=== PATIENT | female | born 1995 | race African-American/Black ===

== ENCOUNTER 2018-07-24 19:21 | Emergency (ER) | payer OTHER ==
--- NOTE | 2018-07-24 20:21 | ER Document Report ---
ED General - General Chief Complaint: Shoulder Pain Stated Complaint: RIGHT ARM/SHOULDER CRAMPING/NECK PAIN Time Seen by Provider: 07/24/18 20:00 Primary Care Provider: MARKO VELASQUEZ DO [Primary Care Provider] - Follow up as needed Mode of Arrival: Ambulatory Information source: Patient TRAVEL OUTSIDE OF THE [place] IN LAST 30 DAYS: No - HPI Patient complains to provider of: Lower abdominal cramping, right shoulder pain Onset: Other - Past couple of days Onset/Duration: Constant Quality of pain: Cramping Severity: Moderate Pain Level: 3 Associated symptoms: denies: Chills, Fever Exacerbated by: Denies Relieved by: Denies Similar symptoms previously: No Recently seen / treated by doctor: No Notes: 23-year-old female coming in today chief complaint of lower abdominal pelvic cramping and right shoulder pain intermittently for the past several days. Patient is . According to dates she is approximately 4 weeks and 4 days along. This is her first . She is not having any vaginal bleeding. Not having any vaginal discharge. She is concerned that she is having right shoulder pain as she has read that this could be signs of an ectopic or ruptured ectopic. - Related Data Allergies/Adverse Reactions: No Known Allergies Allergy (Unverified 07/24/18 19:34) Past Medical History - General Information source: Patient - Social History Smoking Status: Never Smoker Chew tobacco use (# tins/day): No Frequency of alcohol use: None Drug Abuse: None Family History: Reviewed & Not Pertinent Patient has suicidal ideation: No Patient has homicidal ideation: No Renal/ Medical History: Denies: Hx Peritoneal Dialysis Review of Systems - Review of Systems Notes: Constitutional: No fevers. No chills. EENT: No eye redness. No eye pain. No ear pain. No sore throat. Cardiovascular: No chest pain. No palpitations. Respiratory: No cough. No shortness of breath. No respiratory distress. Gastrointestinal: No abdominal pain. No nausea, vomiting, or diarrhea. Genitourinary: Pelvic cramping and discomfort. Negative for vaginal bleeding Musculoskeletal: Atraumatic. No swelling. No deformities. Right shoulder pain Skin: No rash or lesions. Lymphatic: No swollen lymph nodes. Neurologic: No headache. No syncope. Psychiatric: No suicidal or homicidal ideation. Physical Exam - Notes Notes: General: Well-developed, well-nourished. In no acute distress. Non-toxic appearing. Cardiac: Well-perfused. Regular rate and rhythm. No murmurs, rubs, or gallops. Pulmonary: No respiratory distress. No cyanosis. Bilateral lung fiels are clear to auscultation. Abdominal: Non-distended. Non-rigid. Bowels sounds are present in all four quadrants. No guarding or rebound. HEENT: Head is atraumatic. Conjunctivae not reddened. No tearing. PERRL. EOMI. Orbits atraumatic. No periorbital swelling or erythema. Oropharynx is without erythema, swelling, or exudates. Neck: Supple. No adenopathy. No meningismus. Dermatologic: Warm with good turgor. No rash. Atraumatic. Chest: Atraumatic. No chest wall tenderness to palpation. Musculoskeletal: Moves all extremities well. No range of motion deficits. no muscular or joint tenderness. No paraspinal muscle tenderness. no midline spinal tenderness or step-off. Genitourinary: Examination deferred Neurologic: No gross neurologic deficits. Psychiatric: Normal mood. Course - Re-evaluation Re-evalutation: 07/24/18 20:21 Typical orders put in. Transvaginal ultrasound ordered. Reassured patient that her vital signs are not consistent with a ruptured ectopic . 07/24/18 21:17 Please disregard this entry as it was erroneously placed and was meant for another patient. 07/24/18 23:23 Patient's beta-hCG is less than 400. Ultrasound does not identify an intrauterine . Ectopic is not ruled out. I discussed this at length with the patient. She will return Friday or Friday for repeat hCG and we will repeat her ultrasound if we believe that we will be able to rule out ectopic at that time. Patient knows that she needs to drink plenty of fluids and we will just watch and wait and see what happens. - Laboratory Result Diagrams: 07/24/18 20:35 07/24/18 20:35 Laboratory results interpreted by me: 07/24/18 07/24/18 07/24/18 20:20 20:35 20:35 MCV 79 L MCH 26.2 L Calcium 10.5 H Beta HCG, Quant 382.49 H Urine Blood SMALL H Discharge - Discharge Clinical Impression: First trimester , Bilateral lower abdominal cramping Condition: Good Disposition: HOME, SELF-CARE Instructions: Pelvic Pain in ([facility]) Additional Instructions: Because of the early nature of your , we are unable to see any evidence of a on ultrasound. We are also not able to rule out an ectopic , which is a which has implanted somewhere outside of your uterus. On a positive note, the is so early on, that even if it is ectopic it does not pose an immediate danger to your health. What we would like to do is have you return to the emergency department this upcoming Friday or no later than Friday to have your blood test repeated. If your number has multiplied as expected, you may be far enough along for us to see the ultrasound evidence of an intrauterine . Please report back to the emergency department on Friday and no later than Friday to be evaluated again by 1 of the emergency room providers. Referrals: OXANA ROCHA PA-C [Emergency Provider] - 07/27/18
[2018-07-24 20:46] LABS: ABSOLUTE EOSINOPHILS # (AUTO) 0.1 10^3/uL (0.0-0.6); ABSOLUTE LYMPHOCYTES (AUTO) 2.5 10^3/uL (0.5-4.7); ABSOLUTE MONOCYTES (AUTO) 0.7 10^3/uL (0.1-1.4); BASOPHILS % (AUTO) 0.7 % (0-2); EOSINOPHILS % (AUTO) 0.8 % (0-6); HEMATOCRIT 40.3 % (36.0-47.0); HEMOGLOBIN 13.4 g/dL (12.0-15.5); LYMPHOCYTES % (AUTO) 33.9 % (13-45); MEAN CORPUSCULAR HEMOGLOBIN 26.2 pg (27.0-33.4); MEAN CORPUSCULAR HGB CONC 33.2 g/dL (32.0-36.0); MEAN CORPUSCULAR VOLUME 79 fl (80-97); MONOCYTES % (AUTO) 9.7 % (3-13); PLATELET COUNT 301 10^3/uL (150-450); RED BLOOD COUNT 5.09 10^6/uL (3.72-5.28); RED CELL DISTRIBUTION WIDTH 13.7 % (11.5-14.0); SEGMENTED NEUTROPHILS % (AUTO) 54.9 % (42-78); TOTAL CELLS COUNTED % (AUTO) 100 %; WHITE BLOOD COUNT 7.3 10^3/uL (4.0-10.5)
[2018-07-24 20:58] LABS: APPEARANCE,URINE CLEAR; BILIRUBIN,URINE NEGATIVE (NEGATIVE); COLOR,URINE STRAW; GLUCOSE, URINE NEGATIVE (NEGATIVE); KETONES,URINE NEGATIVE (NEGATIVE); LEUKOCYTE ESTERASE,URINE NEGATIVE (NEGATIVE); NITRITE,URINE NEGATIVE (NEGATIVE); PROTEIN,URINE NEGATIVE (NEGATIVE); URINE SPECIFIC GRAVITY 1.005; UROBILINOGEN,URINE NEGATIVE mg/dL (<2.0)
[2018-07-24 20:59] LABS: ALANINE AMINOTRANSFERASE 21 U/L (9-52); ALBUMIN 4.7 g/dL (3.5-5.0); ALKALINE PHOSPHATASE 45 U/L (38-126); ANION GAP 10 (5-19); ASPARTATE AMINO TRANSFERASE 21 U/L (14-36); BILIRUBIN,DIRECT 0.1 mg/dL (0.0-0.4); BILIRUBIN,TOTAL 0.4 mg/dL (0.2-1.3); BLOOD UREA NITROGEN 12 mg/dL (7-20); CALCIUM 10.5 mg/dL (8.4-10.2); CARBON DIOXIDE 26 mmol/L (22-30); CHLORIDE 105 mmol/L (98-107); GLUCOSE 87 mg/dL (75-110); POTASSIUM 4.4 mmol/L (3.6-5.0); SODIUM 140.7 mmol/L (137-145); TOTAL PROTEIN 7.9 g/dL (6.3-8.2)
[2018-07-24 22:04] LABS: EPITHELIALS (WET MOUNT) 3+ EPITHELIALS SEEN; T.VAGINALIS (WET MOUNT) NO TRICHOMONAS SEEN; WBCS (WET MOUNT) FEW WBCS SEEN; YEAST (WET MOUNT) NO YEAST SEEN
--- NOTE | 2018-07-24 23:09 | RADIOLOGY REPORT (SQ) ---
EXAM DESCRIPTION: US TRANSVAGINAL COMPLETED DATE/TME: 07/24/2018 20:14 CLINICAL HISTORY: 23 years, Female, low abd pain early preg. shoulder pain COMPARISON: None. TECHNIQUE: Transverse and longitudinal transvaginal sonographic images in a first trimester patient LIMITATIONS: None. FINDINGS: The uterus measures 7.4 x 3.3 x 5.4 cm. The endometrium measures 13 mm in thickness. The myometrium is homogenous. There is no intrauterine gestational sac. There is a 2.3 x 2.1 x 2.2 cm simple appearing cyst of the right ovary. No solid adnexal mass. Trace of free fluid. Doppler and spectral analysis with color flow shows arterial and venous flow to both ovaries. The right ovary measures 3.9 x 3.0 x 3.0 cm, the left 2.6 x 1.5 x 2.4 cm. IMPRESSION: There is no intrauterine gestational sac. . Right ovarian cyst could reflect corpus luteal cyst or follicle. Correlation with beta hCG levels is recommended. Trace of free fluid. Ectopic not excluded based on this exam copyright 2011 [employer]- All Rights Reserved
[2018-07-24 23:38] VITALS: BP 128/71
[2018-07-25 00:07] LABS: CHLAM PCR NOT DETECTED (NOT DETECT); GON PCR NOT DETECTED (NOT DETECT)
== END 2018-07-24 23:38 | disposition home or self-care (01) ==
LOC: ER 19:21
DX: O26.91 Pregnancy related conditions, unspecified, first trimester (principal); R10.30 Lower abdominal pain, unspecified; M54.2 Cervicalgia; M25.511 Pain in right shoulder; Z3A.01 Less than 8 weeks gestation of pregnancy
CPT/HCPCS: 36415; 76817; 80053; 81001; 84702; 85025; 87210; 87491; 87591; 93976; 99284

== ENCOUNTER 2018-07-27 04:52 | Emergency (ER) | payer OTHER ==
[2018-07-27 05:00] VITALS: BP 113/66
[2018-07-27 06:53] LABS: APPEARANCE,URINE CLEAR; BILIRUBIN,URINE NEGATIVE (NEGATIVE); COLOR,URINE YELLOW; GLUCOSE, URINE NEGATIVE (NEGATIVE); KETONES,URINE NEGATIVE (NEGATIVE); LEUKOCYTE ESTERASE,URINE NEGATIVE (NEGATIVE); NITRITE,URINE NEGATIVE (NEGATIVE); PROTEIN,URINE NEGATIVE (NEGATIVE); URINE SPECIFIC GRAVITY 1.011; UROBILINOGEN,URINE NEGATIVE mg/dL (<2.0)
--- NOTE | 2018-07-27 07:32 | RADIOLOGY REPORT (SQ) ---
EXAM DESCRIPTION: US TRANSVAGINAL COMPLETED DATE/TME: 07/27/2018 06:16 CLINICAL HISTORY: 23 years Female, early , pain, eval for ectopic COMPARISON: 07/24/18 TECHNIQUE: Transvaginal. LIMITATIONS: None. FINDINGS: No intrauterine gestation confirmed. 8 cm uterus, 2.6 cm cervical length, 1.1 cm nongravid appearance of the endometrial stripe, 3.4 cm right ovary, 2.7 cm left ovary appear otherwise of normal size, shape, echotexture, and vascularity. Likely benign follicular cysts of both ovaries and/or corpus luteal cyst measure up to 1.9 cm on the right and 1.2 cm on the left. No significant free fluid. IMPRESSION: No intrauterine confirmed. Differential diagnosis includes early viable occult intrauterine gestation, gestational loss, and occult ECTOPIC gestation. Recommend 48 -72 hours laboratory/sonographic surveillance.
--- NOTE | 2018-07-27 08:14 | ER Document Report ---
ED General - General Chief Complaint: OB Problem (<20wks) Stated Complaint: FOLLOW UP Time Seen by Provider: 07/27/18 06:09 Primary Care Provider: ALYSSA DE LA TORRE [Primary Care Provider] - Follow up as needed TRAVEL OUTSIDE OF THE [place] IN LAST 30 DAYS: No - HPI Notes: Patient is a 23-year-old female, G1, P0, who presents to the emergency department for evaluation. She had right shoulder pain, right pelvic pain, and was evaluated here in the emergency department. Her beta was found to be in the 300s, no obvious intrauterine was identified. She was told to return in 48 to 72 hours for repeat ultrasound and beta. She states that her pain is minimal but still present. She describes it as a cramping. No vaginal bleeding. No fevers or chills. No abnormal vaginal discharge. She is still working with her insurance to try and establish care with an OB. She plans to establish care in [place]. - Related Data Allergies/Adverse Reactions: No Known Allergies Allergy (Unverified 07/24/18 19:34) Past Medical History - General Information source: Patient - Social History Smoking Status: Never Smoker Family History: Reviewed & Not Pertinent, Hypertension Patient has suicidal ideation: No Patient has homicidal ideation: No - Medical History Medical History: Negative Renal/ Medical History: Denies: Hx Peritoneal Dialysis Review of Systems - Review of Systems Constitutional: No symptoms reported EENT: No symptoms reported Cardiovascular: No symptoms reported Respiratory: No symptoms reported Gastrointestinal: No symptoms reported Genitourinary: No symptoms reported Female Genitourinary: See HPI Musculoskeletal: No symptoms reported Skin: No symptoms reported Neurological/Psychological: No symptoms reported Physical Exam - Vital signs Vitals: Temp Pulse Resp BP Pulse Ox 97.3 F 77 14 113/66 99 07/27/18 04:55 07/27/18 04:55 07/27/18 04:55 07/27/18 04:55 07/27/18 04:55 - Notes Notes: Vital signs reviewed, please refer to chart. Head is normocephalic, atraumatic. Pupils equal round, reactive to light. Neck is supple without meningismus. Heart is regular rate and rhythm. Lungs are clear to auscultation bilaterally. Abdomen is soft, nontender, normoactive bowel sounds throughout. Extremities without cyanosis, clubbing. Posterior calves are nontender. Peripheral pulses are equal. Skin is warm and dry. Patient is awake, alert, neurological exam is nonfocal. Course - Re-evaluation Re-evalutation: 07/27/18 08:10 Patient presents to the emergency department for evaluation for follow-up. Laboratory investigations were ordered, ultrasound was ordered. Patient's beta jean pierre appropriately, going from 382 to 1485. Ultrasound, however, fails to reveal any intrauterine . There is no clear adnexal mass. I explained findings to the patient. This could still be a viable intrauterine , but ectopic has as of yet not ruled out. The patient voiced understanding to this. She needs another repeat beta and ultrasound in 48 to 72 hours. I explained to her that we would happily see here here for that, or she could have this performed in OB's office, as she has a meeting with her insurance company tomorrow to be able to establish care with the OB of her choice. She voiced understanding to this. I will give her information in regards to her current lab work. She certainly understands that if she develops increased pain, dizziness, or any other new or concerning symptoms of any sort, she needs to be evaluated immediately in the emergency department. Otherwise she is to return to the ED with worsening, or for repeat blood work and ultrasound as needed. - Vital Signs Vital signs: Temp Pulse Resp BP Pulse Ox 97.3 F 77 14 113/66 99 07/27/18 04:55 07/27/18 04:55 07/27/18 04:55 07/27/18 04:55 07/27/18 04:55 - Laboratory Laboratory results interpreted by me: 07/27/18 07/27/18 06:35 06:35 Beta HCG, Quant 1485.10 H Urine Blood SMALL H Discharge - Discharge Clinical Impression: First trimester , Bilateral lower abdominal cramping Condition: Stable Disposition: HOME, SELF-CARE Instructions: Pelvic Pain in ([facility]) Additional Instructions: It is still unclear as to whether or not your is in the uterus, or is what we call an ectopic . You need to have your laboratory investigations repeated in 48 to 72 hours, as well as your ultrasound. Your beta hCG today was 1485. If you develop increased pain, dizziness, or any other new concerning symptoms, you need to return immediately to the emergency department for evaluation. Referrals: ALYSSA DE LA TORRE [Primary Care Provider] - Follow up as needed
== END 2018-07-27 08:28 | disposition home or self-care (01) ==
LOC: ER 04:52
DX: O26.891 Other specified pregnancy related conditions, first trimester (principal); R10.31 Right lower quadrant pain; R10.32 Left lower quadrant pain; Z3A.00 Weeks of gestation of pregnancy not specified
CPT/HCPCS: 36415; 76817; 81001; 84702; 99284